=== PATIENT | female | born 1960 | race Caucasian/White ===

== ENCOUNTER 2016-08-20 06:14 | Inpatient (IN) | payer OTHER ==
[2016-08-12 21:09] LABS: HEMOGLOBIN 13.1 g/dL (12.0-16.0)
[2016-08-12 21:15] LABS: CALCIUM, SERUM 8.9 MG/DL (8.5-10.4); CHLORIDE, SERUM 108 MMOL/L (96-112); CO2 (CARBON DIOXIDE) 25 MMOL/L (24-34); CREATININE 0.97 MG/DL (0.55-1.02); GFR AFRICAN AMERICAN 76 ML/MIN (>=60); GFR NON AFRICAN AMERICAN 66 ML/MIN (>=60); POTASSIUM, SERUM 3.8 MMOL/L (3.5-5.3); SODIUM, SERUM 141 MMOL/L (135-148)
[2016-08-12 21:16] LABS: BUN (BLOOD UREA NITROGEN) 33 MG/DL (6-23); GLUCOSE, SERUM 114 MG/DL (60-99)
--- NOTE | ~2016-08-20 | DS ---
Discharge Summary [facility] [address] [place]. [address] NAME: KRISHNA MARIE : 60 STATUS : DIS IN PAT#: [id number] AGE: 56 ADM/REG DATE : 08/20/16 MR#: [id number] REPORT SERV DATE: 08/31/16 DICTATED BY: GWEN LEWIS II DATE: 08/31/16 REPORT STATUS : Draft TRANSCRIBED BY: JUDITH DATE: 08/31/16 Data Collection from hospitalization DISCHARGE DIAGNOSES: 1. 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 2. Severe facet arthropathy L4-5 with significant gapping. 3. Right greater than left lower extremity radiculopathy. 4. Diabetes. 5. Irregular heartbeat. 6. Migraines. CONSULTATIONS: None. PROCEDURES: 1. Lumbar laminectomy and facetectomy, L4-L5; Interbody arthrodesis, L4-L5; application of prosthetic device at L4-L5; posterolateral arthrodesis at L4-L5; posterior nonsegmental instrumentation at L4-L5; use of local autograft, allograft substitute, and bone morphogenic protein; use of microscope and stereotactic spinal imaging on 08/20/2016. 2. CT scan of the lumbar spine without contrast on 08/23/2016. PATHOLOGY: Vertebral bone and soft tissue, lumbar spine - no specific microscopic abnormality. DISCHARGE MEDICATIONS: Lioresal 10 mg three times a day, Valium 2 mg every six hours as needed, Toujeo 17 units subcutaneously at bedtime, MS Contin 30 mg every 12 hours, Roxicodone 15 mg every six hours as needed, Lyrica 75 mg twice a day, and Janumet one tablet daily. CONDITION AT DISCHARGE: Stable. DISPOSITION: The patient was discharged home on an 1800-calorie diabetic diet with activities as instructed. She would follow up with me on 09/14/2016. HOSPITAL COURSE: This is a 55-year-old female, who had complained of lumbar spine related symptoms. The symptoms were located in her lower back with radiation into the bilateral lower extremities with associated numbness, tingling, and weakness. She was found to have adjacent segment degeneration at L4-5 with a remote history of L5-S1 fusion. She has severe facet arthropathy at L4-5 with significant gapping. There was right greater than left lower extremity radiculopathy. Treatment options were discussed and it was elected to proceed with surgical intervention. She was admitted to the hospital at this time for further evaluation and treatment. Upon admission, she was taken to the operating room where she underwent the above-mentioned procedure. She tolerated this well and there were no complications. On postop day #1, she felt like her legs had improved. She still has some numbness in the right foot. We encouraged her to mobilize. On postop day #2, she still had some numbness in the right lower extremity. Her pain was much improved. 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 On 08/23/2016, she did have some dizziness. She had good pain control. She had no edema. Natasha was Discharge Summary [address] [address] NAME: KRISHNA MARIE : 60 STATUS : DIS IN PAT#: [id number] AGE: 56 ADM/REG DATE : 08/20/16 MR#: [id number] REPORT SERV DATE: 08/31/16 DICTATED BY: GWEN LEWIS II DATE: 08/31/16 REPORT STATUS : Draft TRANSCRIBED BY: JUDITH DATE: 08/31/16 increased. Over the next couple of days, she continued to progress. A CT scan of the lumbar spine without contrast was performed. She still had some lower extremity pain. Discharge planning was performed. On 08/25/2016, her legs felt much better. Discharge instructions were given. Due to her improved and stable condition, she was discharged home with the above-stated. Information collected by: Evelina Perez I submit the above information as my discharge summary. CRISTOBAL/DAMARISL Gwen Lewis II, M.D. / [id number] CC: Nuvia De La Cruz II, M.D.
--- NOTE | ~2016-08-20 | OP ---
Record Of Operation [facility] [address] [place]. [address] NAME: KRISHNA MARIE : 60 STATUS : ADM IN PAT#: [id number] AGE: 55 ADM/REG DATE : 08/20/16 MR#: [id number] REPORT SERV DATE: 08/23/16 DICTATED BY: GWEN LEWIS II DATE: 08/23/16 REPORT STATUS : Draft TRANSCRIBED BY: MODL DATE: 08/23/16 DATE OF PROCEDURE: 08/20/2016 PREOPERATIVE DIAGNOSES: 1. Adjacent segment degeneration, L4-5 with remote history of L5-S1 fusion. 2. Severe facet arthropathy, L4-5 with significant gapping. 3. Right greater than left lower extremity radiculopathy. POSTOPERATIVE DIAGNOSES: 1. Adjacent segment degeneration, L4-5 with remote history of L5-S1 fusion. 2. Severe facet arthropathy, L4-5 with significant gapping. 3. Right greater than left lower extremity radiculopathy. PROCEDURES: 1. Lumbar laminectomy and facetectomy, L4-L5. 2. Interbody arthrodesis, L4-L5. 3. Application of prosthetic device, L4-L5. 4. Posterolateral arthrodesis, L4-L5. 5. Posterior nonsegmental instrumentation, L4-L5. 6. Use of local autograft, allograft substitute, and bone morphogenic protein. 7. Use of the microscope and stereotactic spinal imaging. SURGEON: Gwen Lewis M.D. FLUIDS: 1500 mL LR. ESTIMATED BLOOD LOSS: 100 mL. DRAINS: One drain. COMPLICATIONS: None. ANTIBIOTIC: Preoperatively. IMPLANTS: Alphatec. COMPLICATIONS: None. PREOPERATIVE HISTORY: Very friendly 55-year-old female, who reports significant radiating pain from the back into the buttocks in particular on the right. She does have a history of foot drop and wears an orthotic device for this. She reports that she had weakness ongoing for some time. She is now complaining of increasing back and leg pain which is consistent with lumbar stenosis. We discussed the pros and cons of the surgery. She does have the spinal column stimulator system which she reportedly uses and benefits from. I discussed with her the rates of success versus failure and she wished to proceed. Record Of Operation [facility] [address] [place]. [address] NAME: KRISHNA MARIE : 60 STATUS : ADM IN PAT#: [id number] AGE: 55 ADM/REG DATE : 08/20/16 MR#: [id number] REPORT SERV DATE: 08/23/16 DICTATED BY: GWEN LEWIS II DATE: 08/23/16 REPORT STATUS : Draft TRANSCRIBED BY: JUDITH DATE: 08/23/16 DESCRIPTION OF PROCEDURE: After informed consent was obtained, Ms Marie was brought to the operating room at her request, and general anesthesia was achieved. She was placed in the prone position, and the back was prepped and draped in a sterile fashion. The stereotactic spinal pin was placed into the left iliac crest followed by completion of the intraoperative CT scan. The stereotactic guidance was then used throughout the case. The minimally invasive incision was performed on the right at L4-5. The minimally invasive quadrant retractor was placed. The facet overall was found to be absolutely massive. There was one of the larger facets that I had seen with extremely severe hypertrophy. The facet capsule was now removed. The [id number] decompression was now achieved with removal of the inferior and superior facets. The L4 and L5 nerve roots were well-decompressed including removal of the central stenosis. The unilateral approach was used for bilateral decompression. The area was now irrigated and both nerve roots were found to be well- decompressed including the central canal. Next, the interbody arthrodesis was initiated with diskectomy. The endplates were prepared with the curettes and the cesilia. The pituitary rongeurs were used. We used a straight upgoing and downgoing pituitary. The area was irrigated followed by placement of the prosthetic device into the anterior column. Excellent fit was obtained. Next, the local autograft and allograft substitute, and a small portion of bone morphogenic protein were then placed into the anterior column. Next, the pedicle screws were applied using stereotactic guidance. The pedicle screws were applied percutaneously on the left. A repeat CT scan confirmed acceptable placement of the implants. The rods were placed and final tightening was performed. Next, the decortication was performed on the right and transverse process at L4 and L5, and local autograft, allograft substitute, and bone morphogenic protein were placed without difficulty. A deep drain was placed followed by standard closure, and the patient was extubated, and transferred to the PACU in stable condition. HUBER/JUDITH Gwen Lewis II, M.D. / [id number] CC: Nuvia De La Cruz II, M.D.
[~2016-08-20 06:14] MED LIST: ACIPHEX PO; ASAB PO; B12100T PO; BRILINTA90 MG PO; CELEXA20 PO; CRESTOR40 MG PO; DIGITEK0.25 MG PO; ENDOCET1 TA3 PO; FOLIC ACID400 MC1 PO; IMITREX100 MG PO; JANUMET1 TA1 PO; K-99 PO; LIOR10 PO; LYRICA75 PO; NEUR600 PO; OXYCOD PO; PERCOCET1 TA4 PO; RANITIDINE300 MG PO; REG PO; SUCR PO; TOPAMAX100 PO; TOUJEO SQ; VITC500 PO; VOLT75 PO; ZONEGRAN PO
[2016-08-21 04:45] LABS: BASOPHILS 0.1 %; BASOPHILS ABSOLUTE 0.01 10/3/uL (0.0-0.16); EOSINOPHILS 0 %; HEMOGLOBIN 12.9 g/dL (12.0-16.0); IMMATURE GRANULOCYTES 0.8 %; IMMATURE GRANULOCYTES ABSOLUTE 0.14 10/3/uL (0.0-0.11); LYMPHOCYTES 9.9 %; LYMPHOCYTES ABSOLUTE 1.77 10/3/uL (0.67-4.30); MEAN CORPUS HGB CONC 34.9 g/dL (32.0-36.0); MEAN CORPUSCULAR HEMOGLOB 29.1 pg (26.0-34.0); MEAN CORPUSCULAR VOLUME 83.3 fL (80-100); MEAN PLATELET VOLUME 10.5 fL (9.2-13.0); MONOCYTES 5.9 %; MONOCYTES ABSOLUTE 1.05 10/3/uL (0.21-1.20); NEUTROPHILS 83.3 %; NEUTROPHILS ABSOLUTE 14.88 10/3/uL (2.02-8.40); PLATELET COUNT 187 10/3/uL (150-400); RBC DISTRIBUTION WIDTH 13.1 % (12.0-16.0); RED CELL COUNT 4.44 10/6/uL (4.0-5.6)
[2016-08-21 04:46] LABS: WHITE BLOOD CELLS 17.9 10/3/uL (4.5-10.5)
[2016-08-21 04:47] LABS: MANUAL DIFF NO %
[2016-08-21 05:01] LABS: CALCIUM, SERUM 9.1 MG/DL (8.5-10.4); CHLORIDE, SERUM 100 MMOL/L (96-112); CO2 (CARBON DIOXIDE) 27 MMOL/L (24-34); CREATININE 0.85 MG/DL (0.55-1.02); GFR AFRICAN AMERICAN 89 ML/MIN (>=60); GFR NON AFRICAN AMERICAN 77 ML/MIN (>=60); POTASSIUM, SERUM 4.3 MMOL/L (3.5-5.3); SODIUM, SERUM 135 MMOL/L (135-148)
[2016-08-21 05:02] LABS: BUN (BLOOD UREA NITROGEN) 19 MG/DL (6-23); GLUCOSE, SERUM 193 MG/DL (60-99)
[2016-08-25] MEDS ORDERED: V2 PO (09:25)
[2016-08-25] MEDS ORDERED: MSCONTIN PO (09:26)
[2016-08-25] MEDS ORDERED: ROXICODONE15 MG PO (09:26)
== END 2016-08-25 17:18 | disposition home or self-care (01) | DRG 460 ==
LOC: SDC/OF 06:14 → PACU 11:38 → 3SO 13:12
PROVIDERS: Orthopaedic Surgery
PROC: 0SG00A1 (ICD-10-PCS; principal; 2016-08-20 08:15)
PROC: 3E0U0GB Introduction of Recombinant Bone Morphogenetic Protein into Joints, Open Approach (ICD-10-PCS; 2016-08-20 08:15)
DX: M51.16 Intervertebral disc disorders with radiculopathy, lumbar region (principal); E11.9 Type 2 diabetes mellitus without complications
CPT/HCPCS: 36415; 72131; 80048; 82962; 85014; 85018; 85025; 87641; 88304; 88311; 93005; 97116-GP; 97162-GP; A9270-GY; C1713; C1768; J0690; J1170; J2250; J2370; J2405; J2710; J3010; J3370